=== PATIENT | male | born 1980 | race Caucasian/White ===

== ENCOUNTER 2022-12-26 00:55 | Emergency (ER) | payer MEDICAID ==
[2022-12-26] MEDS ORDERED: Lidocaine 1% 10 ML MDV INJECT ONE (01:32)
[2022-12-26] MEDS ORDERED: Bupivacaine 0.5%/EPINEPHrine 1:200,000 30 ML SDV INJECT ONE (01:33)
[2022-12-26] MEDS ORDERED: Lidocaine 2% with EPINEPHrine 1:200,000 20 ML SDV ONE (01:37)
[2022-12-26] MEDS ORDERED: Bupivacaine 0.5% 10 ML SDV ONE (01:38)
== END 2022-12-26 02:40 | disposition home or self-care (01) ==
LOC: JD.ED 00:55
DX: S01.511A Laceration without foreign body of lip, initial encounter (principal); E66.9 Obesity, unspecified; Z68.33 Body mass index [BMI] 33.0-33.9, adult; Y04.8XXA Assault by other bodily force, initial encounter
CPT/HCPCS: 12013; 99282; J3490